=== PATIENT | female | born 1970 | race Caucasian/White ===

== ENCOUNTER 2016-11-18 12:33 | Day surgery (SDC) | payer OTHER ==
[~2016-11-18] VITALS: Ht 165.1 cm; Wt 78.6 kg
[~2016-11-18 12:33] MED LIST: ASPI81CH CHEW; ATOR40TA16 PO; COQ-50CA2; LISI2.5T3 PO; METO25TA3 PO; PRAS10TA PO; PROT40TA PO
[2016-11-18] MEDS ORDERED: NS 1000P @30 MLS/HR (KVO) IV SCH (13:30)
[2016-11-18 13:55] LABS: AUTOMATED NEUTROPHIL # 6.3 TH/MM3 (1.8-7.7); BASOPHIL % 0.5 % (0.0-2.0); EOSINOPHIL # 0.1 TH/MM3 (0-0.4); EOSINOPHIL % 0.6 % (0.0-4.0); HEMATOCRIT 38.1 % (35.0-46.0); HEMO FLAGS DIFF FINAL; LYMPH % 20.8 % (9.0-44.0); LYMPHOCYTE # 1.8 TH/MM3 (1.0-4.8); MEAN CELL VOLUME 84.6 FL (80.0-100.0); MEAN CORPUSCULAR HEMOGLOBIN 28.8 PG (27.0-34.0); MONO % 4.9 % (0.0-8.0); NEUT % 73.2 % (16.0-70.0); PLATELET COUNT 342 TH/MM3 (150-450); RED BLOOD COUNT 4.51 MIL/MM3 (4.00-5.30); RED CELL DISTRIBUTION WIDTH 14.2 % (11.6-17.2); WHITE BLOOD COUNT 8.6 TH/MM3 (4.0-11.0)
[2016-11-18] MEDS ORDERED: SODIUM CHLOR 0.9% 1000 ML INJ 1,000 ML IV SCH (13:56)
[2016-11-18 13:59] VITALS: BP 134/85; PULSE 78; RESP 18; TEMP 98.1; O2SAT 97
[2016-11-18] MEDS ORDERED: ASPIRIN 325 MG TAB PO SCH (14:00)
[2016-11-18 14:03] LABS: PROTHROMBIN TIME - PATIENT 10.9 SEC (9.8-11.6)
[2016-11-18 14:09] LABS: BICARBONATE 26.2 MEQ/L (21.0-32.0); POTASSIUM 3.5 MEQ/L (3.5-5.1)
[2016-11-18] MEDS ORDERED: NITR1SUB3 SL (14:09)
[2016-11-18] MEDS ORDERED: ZOFR4TAB PO (14:09)
[2016-11-18] MEDS ORDERED: HEPARIN-NS/PF INJ 500 ML ONE (15:19)
[2016-11-18] MEDS ORDERED: MIDAZOLAM HCL 2 MG/2 ML VIAL ONE ×2 (15:20→16:20)
[2016-11-18 16:10] LABS: BETA HCG QUANT LESS THAN 1 MIU/ML (0-5)
[2016-11-19] MEDS ORDERED: IOHEXOL 350 MG/ML 100 ML BTL (for Cath Lab) OTHER ONE (11:42)
--- NOTE | 2016-11-19 18:11 | EKG ---
Date Performed: 11/18/2016 Time Performed: 13:58:28 PTAGE: 46 years EKG: Sinus rhythm Possible inferior infarct - age undetermined Since previous tracing, no significant change noted Abn ormal ECG PREVIOUS TRACING : 09/07/2016 11.12 DOCTOR: Ty Flood Interpretating Date/Time 11/19/2016 18:10:45
--- NOTE | 2016-11-19 21:51 | MA ---
cc: DARLYN BOWER MD, HUMAYUN A. M.D. DATE: 11/18/2016 PROCEDURE Cardiac catheterization. INDICATION FOR CARDIAC CATHETERIZATION Unstable angina. CONSENT A full informed consent was obtained prior to the procedure. The risks of , bleeding, myocardial infarction, perforation, aspiration, foreseen and unforeseen complications were reviewed. The patient fully appeared to understand the risks. PROCEDURAL STATEMENTS The patient was draped and prepped in the usual manner. The right femoral artery was entered using micropuncture technique. Via a 4 [place] sheath, left and right coronary catheters were used to intubate the left and right coronaries. Pigtail catheter was used to intubate the left ventricle. Multiple angiographic views were carried out. At the end of the catheterization procedure, all catheters and sheaths were removed. Manual pressure applied until good hemostasis achieved. The patient returned to her room in stable condition. FINDINGS: I. HEMODYNAMICS: The aortic pressure was 120/71 with a mean of 94. The left ventricular pressure was 119 with a left ventricular end-diastolic pressure of 16. There was no evidence of significant gradient on pullback across the LV outflow tract or aortic valve. II. CORONARIES: The left main is free of significant disease. The left anterior descending artery is a large vessel with a large first diagonal branch free of significant disease. The circumflex vessel is a large vessel with a medium first obtuse marginal branch and medium second obtuse marginal branch. The right coronary artery is a large dominant vessel with a large posterior descending and large posterolateral branch. In the middle of the right coronary artery is evidence of a stent, there is mild in-stent stenosis of about 25%. The circumflex vessel with a previously placed stent in the mid circumflex is widely patent with no evidence of significant stenosis. CONCLUSION This is a patient with a known history of myocardial infarction with stenting and also high-grade circumflex disease. She is very stable status post prior stents. The cause of her unstable angina is uncertain. Sasha Lutz MD, FRCP,FACC [facility]J/BJF /4:55 PM /9:21 PM
== END 2016-11-18 21:02 | disposition home or self-care (01) ==
LOC: HDOC 12:33 → HDIC 12:33 → HDOC 21:02
PROVIDERS: ATTEND Internal Medicine Cardiovascular Disease
DX: I25.110 Atherosclerotic heart disease of native coronary artery with unstable angina pectoris (principal); E78.5 Hyperlipidemia, unspecified; I10 Essential (primary) hypertension; K21.9 Gastro-esophageal reflux disease without esophagitis; Z98.61 Coronary angioplasty status
CPT/HCPCS: 80048; 84702; 85025; 85610; 85730; 93005; 93458; C1769; C1893; J1644; J2250; J3010; Q9967